=== PATIENT | male | born 1985 | race African-American/Black ===

== ENCOUNTER 2019-02-04 19:15 | Emergency (ER) | payer BC ==
[~2019-02-04] VITALS: Ht 167.6 cm; Wt 74.8 kg
[2019-02-04] MEDS ORDERED: NAPROSYN500 MG PO (20:55)
[2019-02-04] MEDS ORDERED: FLEXERIL PO (20:55)
[2019-02-04 21:38] VITALS: BP 118/90
== END 2019-02-04 21:39 | disposition home or self-care (01) ==
LOC: ER 19:15
DX: S16.1XXA Strain of muscle, fascia and tendon at neck level, initial encounter (principal); X58.XXXA Exposure to other specified factors, initial encounter; Y93.89 Activity, other specified; Y92.89 Other specified places as the place of occurrence of the external cause; Y99.8 Other external cause status